=== PATIENT | male | born 1990 | race Caucasian/White ===

== ENCOUNTER 2016-12-21 12:08 | Emergency (ER) | payer SELFPAY ==
[2016-12-21 12:19] VITALS: BP 123/66; PULSE 79; TEMP 97.7; BMI 37.8
== END 2016-12-21 12:49 | disposition left against medical advice (07) ==
LOC: JER 12:08
DX: Z53.21 Procedure and treatment not carried out due to patient leaving prior to being seen by health care provider (principal)
CPT/HCPCS: 99281-25

== ENCOUNTER 2016-12-21 20:14 | Emergency (ER) | payer SELFPAY ==
[2016-12-21 20:22] VITALS: BP 116/72; PULSE 84; TEMP 98.7; BMI 40.5
--- NOTE | 2016-12-21 20:33 | PDOC ---
History of Present Illness - General Chief Complaint: Vomiting/Diarrhea Stated Complaint: Vomiting/Diarrhea/ABD PAIN Time Seen by Provider: 12/21/16 20:30 History Source: Patient Exam Limitations: No Limitations - History of Present Illness Initial Comments: 12/21/16 20:33 CHIEF COMPLAINT: Vomiting and diarrhea HISTORY OF PRESENT ILLNESS: This is an otherwise healthy 26-year-old male who presents for evaluation of 2 days of vomiting and diarrhea. He reports subjective fever. He has developed some abdominal discomfort, but only after multiple episodes of vomiting. His 2 children were seen here recently for similar complaints. He reports that he is able to keep down water, but unable to keep down any food. Vital signs on arrival are unremarkable. REVIEW OF SYSTEMS: GENERAL/CONSTITUTIONAL: Subjective fever. No weakness. No weight change. HEAD, EYES, EARS, NOSE AND THROAT: No change in vision. No ear pain or discharge. No sore throat. CARDIOVASCULAR: No chest pain or palpitations. RESPIRATORY: No cough, wheezing, or shortness of breath. GASTROINTESTINAL: See HPI. GENITOURINARY: No dysuria, frequency, or change in urination. MUSCULOSKELETAL: No joint or muscle swelling or pain. No neck or back pain. SKIN: No rash or easy bruising. NEUROLOGIC: No headache, vertigo, loss of consciousness, or loss of sensation. PSYCHIATRIC: No depression or anxiety. ENDOCRINE: No increased thirst. No abnormal weight change. HEMATOLOGIC/LYMPHATIC: No anemia, easy bleeding, or history of blood clots. ALLERGIC/IMMUNOLOGIC: No hives or skin allergy. No latex allergy. PHYSICAL EXAM: GENERAL: The patient is awake, alert, and fully oriented, in no acute distress. ENT: Pupils equal, round and reactive to light, extraocular movements intact, sclera anicteric, conjunctiva clear. Neck supple. LUNGS: Clear to auscultation bilaterally. Normal excursion. No respiratory distress or use of accessory muscles. CV: RRR, S1/S2, no MRG. Cap refill < 2 sec. ABDOMEN: Soft, non-distended, non-tender. EXTREMITIES: Normal range of motion, no edema. NEUROLOGICAL: Normal speech, normal gait. CN II-XII grossly intact. PSYCH: Normal mood, normal affect. SKIN: Warm, dry, normal turgor, no rashes or lesions noted. Past History - Past Medical History Allergies/Adverse Reactions: Allergies Allergy/AdvReac Type Severity Reaction Status Date / Time shellfish derived Allergy Mild Verified 12/21/16 20:59 sea food Allergy Uncoded 12/21/16 20:22 Home Medications: Ambulatory Orders Fluticasone Prop 0.05% Nasal [Flonase -] 1 - 2 spray NS DAILY #1 spray.pump 05/29 Oseltamivir Phosphate [Tamiflu] 75 mg PO BID #10 capsule 09/24/15 Ondansetron [Zofran Odt -] 4 mg SL TID PRN #21 od.tablet 12/21/16 Cardiac Disorders: Yes (MURMUR, LEAKY VALVE) - Psycho/Social/Smoking Cessation Hx Anxiety: No Suicidal Ideation: No Smoking History: Current every day smoker Have you smoked in the past 12 months: Yes Number of Cigarettes Smoked Daily: 10 Information on smoking cessation initiated: No 'Breaking Loose' booklet given: 12/21/16 Hx Alcohol Use: No Drug/Substance Use Hx: No Substance Use Type: None *Physical Exam - Vital Signs Last Vital Signs Temp Pulse Resp BP Pulse Ox 98.7 F 84 18 116/72 99 12/21/16 20:17 12/21/16 20:17 12/21/16 20:17 12/21/16 20:17 12/21/16 20:17 Medical Decision Making - Medical Decision Making 12/21/16 21:22 A/P: 26 year old male with vomiting/diarrhea. Two children with similar symptoms. Suspect viral gastroenteritis. -Oral Zantac and Zofran given with relief of symptoms -Tolerated crackers -Declines labs -Followup instructions and return precautions reviewed *DC/Admit/Observation/Transfer Diagnosis at time of Disposition: Vomiting and diarrhea - Discharge Dispostion Admit: No - Prescriptions Prescriptions: Ondansetron [Zofran Odt -] 4 mg SL TID PRN #21 od.tablet PRN Reason: Nausea - Referrals Referrals: Danielle Ring MD [Staff Physician] - 1 week - Patient Instructions Printed Discharge Instructions: DI for Viral Gastroenteritis -- Adult, Gastroenteritis Diet Additional Instructions: -Rest and stay well-hydrated -Eat a bland diet -Take Zofran if needed for nausea -Follow up with a primary care doctor (referral enclosed in case you do not have one) -Return if you are unable to keep down fluids, or for any other concerning symptoms
[2016-12-21] MEDS ORDERED: RANITIDINE HCL 150 MG TABLET (FP) PO ONE (20:46)
[2016-12-21] MEDS ORDERED: ONDANSETRON *ODT* 4 MG TABLET SL ONE (20:46)
== END 2016-12-21 21:27 | disposition home or self-care (01) ==
LOC: JERFT 20:14
DX: A08.4 Viral intestinal infection, unspecified (principal); B97.89 Other viral agents as the cause of diseases classified elsewhere
CPT/HCPCS: 99281-25

== ENCOUNTER 2018-05-05 12:07 | Emergency (ER) | payer OTHER ==
[2018-05-05 12:24] VITALS: BMI 42.9
[2018-05-05] MEDS ORDERED: FAMOTIDINE 20 MG/50 ML IVPB 20 MG/50 ML MG IVPB ONE ×2 (13:19→13:38)
[2018-05-05] MEDS ORDERED: SODIUM CHLORIDE 0.9% 1000 ML INFUS.BAG IV ONE (13:19)
[2018-05-05] MEDS ORDERED: ONDANSETRON 4 MG/2 ML VIAL IVPUSH ONE (13:19)
[2018-05-05] MEDS ORDERED: PSEUDOEPHEDRINE HCL 30 MG TABLET PO ONE (13:20)
[2018-05-05] MEDS ORDERED: PSEUDOEPHEDRINE HCL 60 MG TABLET ONE (13:38)
[2018-05-05] MEDS ORDERED: ONDANSETRON 4 MG/2 ML VIAL ONE (13:38)
--- NOTE | 2018-05-05 13:46 | PDOC ---
History of Present Illness - General History Source: Patient Exam Limitations: No Limitations - History of Present Illness Initial Comments: 05/05/18 13:46 The patient is a 27 year old male with no significant past medical history who presents today complaining of nausea, vomiting, diarrhea, and RUQ pain over the past 4 days and about 1 month of cough, congestion, and headache. He reports about 3-4 episodes of nonbloody nonbilious vomiting with the most recent episode this morning upon waking up. He also reports multiple episodes of diarrhea that is loose and watery. He notes a loss of appetite and states that hes been experiencing some RUQ and epigastric pain over the past couple of days. The patient reports a constant cough productive of white sputum. He notes that he has been a tobacco smoker over many years, however this cough is worse than his usual cough at baseline. He describes the headache as a squeezing pain that is associated with photophobia. The patient endorses body aches and loss of appetite. The patient notes that he had a recent echo that was resulted normal. Denies fever, chills. Denies sick contact. Denies recent travel. Denies recent leg swelling. Denies chest pain. Denies bloody or tarry stools. Allergies: shellfish, seafood Social hx: Every day tobacco use <Joyce Boudreaux - Last Filed: 05/05/18 14:53> <Xenia Maldonado - Last Filed: 05/05/18 15:43> - General Chief Complaint: Pain Stated Complaint: HEADACHE, NAUSEA Past History <Joyce Boudreaux - Last Filed: 05/05/18 14:53> - Past Medical History Cardiac Disorders: Yes (MURMUR, LEAKY VALVE) - Suicide/Smoking/Psychosocial Hx Smoking History: Current every day smoker Have you smoked in the past 12 months: Yes Number of Cigarettes Smoked Daily: 10 Information on smoking cessation initiated: No 'Breaking Loose' booklet given: 12/21/16 Hx Alcohol Use: No Drug/Substance Use Hx: No Substance Use Type: None <Xenia Maldonado - Last Filed: 05/05/18 15:43> - Past Medical History Allergies/Adverse Reactions: Allergies Allergy/AdvReac Type Severity Reaction Status Date / Time shellfish derived Allergy Mild Verified 05/05/18 12:13 sea food Allergy Uncoded 05/05/18 12:13 Home Medications: Ambulatory Orders Albuterol Sulfate Inhaler - [Ventolin HFA Inhaler -] 2 inh PO Q4H PRN #1 inh MDD 1 05/05/18 Loratadine [Claritin] 10 mg PO DAILY 05/05/18 Review of Systems - Review of Systems Able to Perform ROS?: Yes Comments:: 05/05/18 13:49 GENERAL/CONSTITUTIONAL: No fever or chills. No weakness. HEAD, EYES, EARS, NOSE AND THROAT: No change in vision. No ear pain or discharge. No sore throat. CARDIOVASCULAR: No chest pain or shortness of breath. RESPIRATORY: +productive cough, No wheezing or hemoptysis. GASTROINTESTINAL: +nausea, +vomiting, +diarrhea. No constipation. GENITOURINARY: No dysuria, frequency, or change in urination. MUSCULOSKELETAL: +myalgias SKIN: No rash NEUROLOGIC: +headache. No vertigo, loss of consciousness, or change in strength/ sensation. ENDOCRINE: No increased thirst. No abnormal weight change. HEMATOLOGIC/LYMPHATIC: No anemia, easy bleeding, or history of blood clots. ALLERGIC/IMMUNOLOGIC: No hives or skin allergy. <Joyce Boudreaux - Last Filed: 05/05/18 14:53> *Physical Exam - Vital Signs Last Vital Signs Temp Pulse Resp BP Pulse Ox 97.9 F 90 22 H 128/85 99 05/05/18 12:14 05/05/18 12:14 05/05/18 12:14 05/05/18 12:14 05/05/18 12:14 - Physical Exam Comments: 05/05/18 13:50 GENERAL: Awake, alert, and fully oriented, in no acute distress HEAD: No signs of trauma EYES: PERRLA, EOMI, sclera anicteric, conjunctiva clear ENT: Auricles normal inspection, hearing grossly normal, nares patent, +clear rhinorrhea, oropharynx clear without exudates. Moist mucosa NECK: Normal ROM, supple, no lymphadenopathy, JVD, or masses LUNGS: Breath sounds equal, clear to auscultation bilaterally. No wheezes, and no crackles HEART: Regular rate and rhythm, normal S1 and S2, no murmurs, rubs or gallops ABDOMEN: Soft, +RUQ tenderness, normoactive bowel sounds. No guarding, no rebound. No masses EXTREMITIES: Normal range of motion, no edema. No clubbing or cyanosis. No cords, erythema, or tenderness NEUROLOGICAL: A&O x3, Cranial nerves II through XII grossly intact. Normal speech, normal gait SKIN: Warm, Dry, normal turgor, no rashes or lesions noted. <Joyce Boudreaux - Last Filed: 05/05/18 14:53> - Vital Signs Last Vital Signs Temp Pulse Resp BP Pulse Ox 97.9 F 90 22 H 128/85 99 05/05/18 12:14 05/05/18 12:14 05/05/18 12:14 05/05/18 12:14 05/05/18 12:14 <Xenia Maldonado - Last Filed: 05/05/18 15:43> ED Treatment Course - LABORATORY CBC & Chemistry Diagram: 05/05/18 13:35 05/05/18 13:35 - ADDITIONAL ORDERS Additional order review: Laboratory Results 05/05/18 12:42 POC Glucometer [id number] 05/05/18 12:42 POC Glucometer [id number] - RADIOLOGY Radiograph Interpretation: 05/05/18 14:53 EXAM#: TYPE/EXAM: RESULT: [id number] US/ABDOMEN US -LIMITED Right upper quadrant abdomen ultrasound IMPRESSION: Very limited visualization due to body habitus. There is no obvious cholelithiasis. Gallbladder wall thickness appears to be borderline. Additional evaluation utilizing CT or MRI/MRCP may be considered. Diffuse hepatic steatosis. Reported By: Norman Freeman MD 05/05/18 1440 - Medications Given in the ED: ED Medications Discontinued Medications Generic Name Dose Route Start Last Admin Trade Name Freq PRN Reason Stop Dose Admin Ondansetron HCl 4 mg 05/05/18 13:19 05/05/18 13:43 Zofran Injection IVPUSH 05/05/18 13:20 4 mg ONCE ONE Administration Pseudoephedrine HCl 30 mg 05/05/18 13:20 05/05/18 13:43 Sudafed - PO 05/05/18 13:21 30 mg ONCE ONE Administration Sodium Chloride 1,000 ml 05/05/18 13:19 05/05/18 13:43 Normal Saline - IV 05/05/18 13:20 1,000 ml ONCE ONE Administration <Joyce Boudreaux - Last Filed: 05/05/18 14:53> - LABORATORY CBC & Chemistry Diagram: 05/05/18 13:35 05/05/18 13:35 - ADDITIONAL ORDERS Additional order review: Laboratory Results 05/05/18 12:42 POC Glucometer [id number] 05/05/18 12:42 POC Glucometer [id number] - RADIOLOGY Radiology Studies Ordered: Category Date Time Status CHEST PA & LAT [RAD] Stat Radiology 05/05/18 12:46 Ordered ABDOMEN US -LIMITED [US] Stat Ultrasound 05/05/18 13:22 Ordered <Xenia Maldonado - Last Filed: 05/05/18 15:43> Medical Decision Making - Medical Decision Making 05/05/18 13:36 27 yo male with h/o tobacco use, here with c/o nasal congestion and cough for one month, recently n/v. x few days. no sick contacts. no travel. mild right upper quad abd pain. no rash. no fever or chills. does c/o myalgia. cough productive of white phlegm. on exam pt wtih clear lungs, heart rrr no appreciated murmur, abd mild ruq ttp. differential : pna, cholelithiasis, cholecysitits, gastritis, viral uri, plan cxr labs lipase lft ua iv hydration antiemetics. reasess. <Xenia Maldonado - Last Filed: 05/05/18 15:43> *DC/Admit/Observation/Transfer - Attestations Scribe Attestion: 05/05/18 13:50 Documentation prepared by AZIZA Mello, acting as medical specialist for Xenia Maldonado MD. <Joyce Boudreaux - Last Filed: 05/05/18 14:53> - Discharge Dispostion Decision to Admit order: No <Xenia Maldonado - Last Filed: 05/05/18 15:43> Diagnosis at time of Disposition: Bronchitis, Gastritis - Discharge Dispostion Condition at time of disposition: Improved - Prescriptions Prescriptions: Albuterol Sulfate Inhaler - [Ventolin HFA Inhaler -] 2 inh PO Q4H PRN #1 inh MDD 1 PRN Reason: Wheezing - Referrals Referrals: Noe Marino MD [Staff Physician] - - Patient Instructions Printed Discharge Instructions: Acute Bronchitis, Gastritis Additional Instructions: you chest xray was negative for any pneumonia. your ultrasound shows a fatty liver, this should be reevaluated with your primary doctor for repeat liver test in 4 - 6 weeks. a copy of your labs is attached. you can also follow up with a gastro enterologist. call to schedule. see referral for dr. Marino . return for persistant vomiting, fever, or any worsening pain. you should quit smoking. you can use inhaler 2 puffs ever 4 hrs as needed for your cough . you should also follow up with your primary doctor. call to schedule.
[2018-05-05 13:52] LABS: EOS % 3.6 % (0-4.5); HEMOGLOBIN 15.8 GM/dL (11.7-16.9); LYMPH % 38.9 % (8-40); MCH 29.9 pg (25.7-33.7); MCHC 34.4 g/dl (32.0-35.9); MEAN CELL VOLUME 87.1 fl (80-96); MEAN PLT VOLUME 7.5 fl (7.5-11.1); MONO % 7.9 % (3.8-10.2); NEUT % 48.6 % (42.8-82.8); PLATELET COUNT 296 K/MM3 (134-434); RBC 5.28 M/mm3 (4.00-5.60); RDW 13.4 % (11.9-15.9); WHITE BLOOD COUNT 7.9 K/mm3 (4.0-10.0)
[2018-05-05 14:20] LABS: ALK PHOS 66 U/L (45-117); ANION GAP 6 MMOL/L (8-16); BILIRUBIN,TOTAL 0.6 mg/dL (0.2-1); BLOOD UREA NITROGEN 14 mg/dL (7-18); CALCIUM 8.8 mg/dL (8.5-10.1); CHLORIDE 105 mmol/L (98-107); CO2 28 mmol/L (21-32); GLUCOSE,RANDOM 84 mg/dL (74-106); LIPASE 173 U/L (73-393); POTASSIUM 4.1 mmol/L (3.5-5.1); SGOT/AST 46 U/L (15-37); SGPT/ALT 101 U/L (13-61); SODIUM 139 mmol/L (136-145); TOT PROT 7.9 g/dl (6.4-8.2)
[2018-05-05 15:24] LABS: URINE APPEARANCE CLEAR; URINE BILIRUBIN NEGATIVE (<2.0 mg/dL); URINE COLOR YELLOW; URINE GLUCOSE (UA) NEGATIVE (NEGATIVE); URINE KETONE NEGATIVE (NEGATIVE); URINE LEUK ESTERASE NEGATIVE (NEGATIVE); URINE NITRITE NEGATIVE (NEGATIVE); URINE PROTEIN NEGATIVE (NEGATIVE); URINE UROBILINOGEN NEGATIVE mg/dL (0.2-1.0)
[2018-05-05] MEDS ORDERED: KETOROLAC TROMETHAMINE 30 MG/1 ML VIAL IVPUSH ONE (15:39)
[2018-05-05] MEDS ORDERED: KETOROLAC TROMETHAMINE 30 MG/1 ML VIAL ONE (15:43)
[2018-05-05 15:48] VITALS: BP 124/81; PULSE 85; TEMP 98.2
== END 2018-05-05 16:20 | disposition home or self-care (01) ==
LOC: JER 12:07
PROC: 3E033GC Introduction of Other Therapeutic Substance into Peripheral Vein, Percutaneous Approach (ICD-10-PCS; principal; 2018-05-05)
PROC: 3E0333Z Introduction of Anti-inflammatory into Peripheral Vein, Percutaneous Approach (ICD-10-PCS; 2018-05-05)
DX: K29.70 Gastritis, unspecified, without bleeding (principal); J40 Bronchitis, not specified as acute or chronic
CPT/HCPCS: 36415; 71046-TC-FY; 76705-TC; 80053; 81003; 82962; 83690; 85025; 87804; 99283-25; J7030

== ENCOUNTER → 2022-01-11 | Emergency (ER) | payer OTHER ==
[~2022-01-11] MED LIST: ACETAMINOPHEN 1000 MG/100 ML BAG IVPB ONE; FAMOTIDINE 20 MG/50 ML IVPB 20 MG in PREMIX 50 IVPB ONE; KETOROLAC TROMETHAMINE 15 MG/ML VIAL IVPUSH ONE; MAG HYDROX/AL HYDROX/SIMETH -MYLANTA- ORAL SUSPENSION PO ONE
[2022-01-11 22:51] VITALS: BP 131/82; PULSE 81; RESP 19; TEMP 98.6; BMI 44.6
[2022-01-12 00:24] LABS: BASO % 0.7 % (0-2.0); EOS % 2.5 % (0-4.5); HEMATOCRIT 43.6 % (35.4-49); HEMOGLOBIN 14.9 GM/dL (11.7-16.9); MCH 29.6 pg (25.7-33.7); MCHC 34.2 g/dl (32.0-35.9); MEAN CELL VOLUME 86.7 fl (80-96); MEAN PLT VOLUME 7.7 fl (7.5-11.1); MONO % 4.8 % (3.8-10.2); PLATELET COUNT 299 10^3/uL (134-434); RBC 5.03 M/mm3 (4.00-5.60); RDW 13.3 % (11.9-15.9)
[2022-01-12 00:33] LABS: INR 1.09 (0.83-1.09); PROTHROMBIN TIME (PATIENT) 12.5 SEC (9.7-13.0)
[2022-01-12 00:36] LABS: ACTIVATED PTT 30.8 SECONDS (25.2-36.5)
[2022-01-12 00:45] LABS: BLOOD UREA NITROGEN 14.9 mg/dL (7-18); CALCIUM 8.9 mg/dL (8.5-10.1)
[2022-01-12 00:50] LABS: BILIRUBIN,TOTAL 0.7 mg/dL (0.2-1); TOT PROT 7.6 g/dl (6.4-8.2)
== END | disposition left against medical advice (07) ==
LOC: JER 22:41
PROC: 3E0333Z Introduction of Anti-inflammatory into Peripheral Vein, Percutaneous Approach (ICD-10-PCS; principal; 2022-01-11)
PROC: 3E033GC Introduction of Other Therapeutic Substance into Peripheral Vein, Percutaneous Approach (ICD-10-PCS; 2022-01-11)
PROC: 3E0333Z Introduction of Anti-inflammatory into Peripheral Vein, Percutaneous Approach (ICD-10-PCS; 2022-01-11)
DX: R07.9 Chest pain, unspecified (principal)
CPT/HCPCS: 0241U-QW; 36415; 71045-TC-FY; 80053; 84484; 85025; 85610; 85730; 93005; 93010; 99285-25

== ENCOUNTER 2023-09-06 22:07 | Emergency (ER) | payer OTHER ==
[2023-09-06 22:13] VITALS: RESP 20; TEMP 98.3; BMI 45.2
[2023-09-06] MEDS ORDERED: ACETAMINOPHEN 500 MG TABLET (FP) ONE (23:13)
[2023-09-06] MEDS: ACETAMINOPHEN 325 MG TABLET (FP) PO ONE (23:17)
[2023-09-06 23:18] VITALS: BP 138/89; PULSE 78
== END 2023-09-06 23:18 | disposition home or self-care (01) ==
LOC: JER 22:07
DX: R51.9 Headache, unspecified (principal); I10 Essential (primary) hypertension
CPT/HCPCS: 99283-25

== ENCOUNTER 2024-02-02 04:07 | Day surgery (SDC) | payer OTHER ==
[2024-02-01 12:25] VITALS: BMI 42.7
[2024-02-02] MEDS ORDERED: BUPIVACAINE HCL/PF 0.25% (2.5MG/ML) 10 ML VIAL ONE (10:48)
[2024-02-02] MEDS ORDERED: INDOCYANINE GREEN 25 MG/10 ML VIAL IVPUSH ONE (11:05)
[2024-02-02] MEDS ORDERED: PROPOFOL 20 ML ONE (11:18)
[2024-02-02] MEDS ORDERED: MIDAZOLAM HCL 2 MG/2 ML SINGLE DOSE VIAL ONE (11:19)
[2024-02-02] MEDS ORDERED: ROCURONIUM BROMIDE 50 MG/5 ML SYRINGE ONE ×2 (11:19→11:53)
[2024-02-02] MEDS ORDERED: CEFOXITIN SODIUM 2 GM IVPB ONE (11:25)
[2024-02-02] MEDS ORDERED: HEPARIN NA (PORCINE) 5,000 UNITS/ML 1ML VIAL ONE (11:31)
[2024-02-02] MEDS: cefoTEtan DISODIUM 2 GM VIAL (RESTRICTED TO ID) IVPB ONE (11:40)
[2024-02-02] MEDS ORDERED: ePHEDrine SULFATE 50 MG/1 ML AMPULE ONE (11:56)
[2024-02-02] MEDS ORDERED: ONDANSETRON 4 MG/2 ML VIAL IVPUSH PRN (12:10)
[2024-02-02] MEDS ORDERED: LACTATED RINGERS SOLUTION 1,000 ML IV SCH (12:15)
[2024-02-02 13:58] VITALS: TEMP 97
[2024-02-02] MEDS ORDERED: oxyCODONE HCL 5 MG TABLET ONE (16:45)
[2024-02-02] MEDS: oxyCODONE HCL 5 MG TABLET PO PRN (16:48)
[2024-02-02 17:12] VITALS: RESP 18
[2024-02-02 17:47] VITALS: BP 105/64; PULSE 63
== END 2024-02-02 05:45 | disposition home or self-care (01) ==
LOC: JASU-SURG 04:07
PROVIDERS: ATTEND Surgery
PROC: 0FT44ZZ Resection of Gallbladder, Percutaneous Endoscopic Approach (ICD-10-PCS; principal; 2024-02-02 10:00)
DX: K80.80 Other cholelithiasis without obstruction (principal)
CPT/HCPCS: 86850; 86900; 86901; 88304-TC; 94760; J1644